=== PATIENT | male | born 1975 | race Caucasian/White ===

== ENCOUNTER 2016-12-03 09:43 | Emergency (ER) | payer SELFPAY ==
[~2016-12-03] VITALS: Ht 177.8 cm; Wt 85.6 kg
[2016-12-03 09:54] VITALS: TEMP 36.8; Ht 177.8 cm; Wt 85.6 kg
[2016-12-03] MEDS ORDERED: DOXY-300 PO (10:40)
--- NOTE | 2016-12-03 10:41 | EMERGENCY ROOM VISIT NOTE ---
History First contact with patient: 10:30 Chief Complaint: BITE Stated Complaint: TICK BITE History of Present Illness The patient is a 41 year old male who presents to the Emergency Room via private vehicle with complaints of "tick bite". The patient states that he was in the shower earlier in the week and noticed a tick bite on his left nipple region. This was removed. He states that he then developed a red erythematous rash around his left nipple. It is been itchy and irritated he states. He denies any pain. He denies any associated fevers, chills, nausea or vomiting. He does have a history significant for Lyme disease in the past which she has been treated with doxycycline. Review of Systems A complete 6-point Review of Systems was discussed with the patient, with pertinent positives and negatives listed in the History of Present Illness. All remaining Review of Systems questions can be considered negative unless otherwise specified. Past Medical/Surgical History Lyme disease Family History Unremarkable Social History Social History: Patient lives locally with a self and his daughter. Current/Historical Medications Scheduled Doxycycline (Monohydrate) (Doxycycline), 100 MG PO BID Miscellaneous Medications None (Patient States No Home Meds) Allergies Coded Allergies: Sulfamethoxazole w/Trimethoprim (Unverified Allergy, hives, 11/17/09) Physical Exam Vital Signs Date Time Temp Pulse Resp B/P (MAP) Pulse Ox O2 Delivery O2 Flow Rate FiO2 12/03/16 10:49 72 18 148/94 97 12/03/16 09:54 36.8 76 20 141/92 97 Room Air Physical Exam VITAL SIGNS - Vital signs and nursing notes were reviewed. Patient is afebrile , hypertensive at 142/91, non-tachycardic and is saturating well on room air 97% . GENERAL -41-year-old male appearing his without stated age who is in no acute distress. Communicates well with provider and answers questions appropriately. SKIN - A circular erythematous rash around the left nipple region. This is not fluctuant. Medical Decision & Procedures Medical Decision Patient was seen and evaluated as above. After obtaining a thorough history and physical examination it was evident the patient was likely experiencing the erythema migrans rash. I do not suspect cellulitis. This was discussed the patient, and decision was made to treat him with doxycycline 21 days. He is to follow-up with his family doctor which he notes he does not have therefore he was instructed to call back here to our hospice case manager if he would like help establishing a family doctor. I offered to help establish a family doctor during his stay and he declined. He does not have any other symptoms at this time. He was educated upon worrisome symptoms which to return, had questions about discharge, and was discharged home in good condition. In evaluation treatment this patient following differential diagnoses were entertained: Erythema migrans, Lyme disease, cellulitis, among others. Impression Primary Impression: Tick bite Additional Impression: Erythema migrans (Lyme disease) Departure Information Dispostion Home / Self-Care Condition GOOD Prescriptions Doxycycline (Monohydrate) (Doxycycline) 100 Mg Cap 100 MG PO BID for 21 Days, #42 TABS Prov: Getachew Cerrato PA-C 12/03/16 Referrals No Doctor, Assigned (PCP) Patient Instructions My [facility] Additional Instructions You were seen in the emergency Department for the rash/redness after a tick bite. At this time we are concerned this could be from Lyme disease. You have been prescribed Doxycycline to be taken as prescribed. This is an antibiotic. All antibiotics have the potential to cause diarrhea. Stop this medication and contact a medical provider if you were to develop any significant adverse side effects including: wheezing, shortness of breath, passing out, vomiting, or a diffuse rash. Always take antibiotics as directed and COMPLETE the ENTIRE course regardless of the improvement of your symptoms. Protect yourself with sunscreen while on this antibiotic as it increases your skin's sensitivity to the light and cause bad sunburns. In addition, you should be sure to take this pill after eating. Make sure the pill is completely swallowed as this medication can cause irritation to the lining of the esophagus. Do NOT drink milk or eat anything with large amounts of Calcium in them 1 hour prior to taking this medication as this will decrease the effectiveness of the medication. This is a 21 day course. If you develop a fever, chills, joint pain, headache or any new/concerning symptoms please return immediately. If the redness worsens please return. Your blood pressure was found to be elevated today, it is recommended that you follow-up with the family doctor. If he would like assistance in identifying a family doctor please call [phone] and ask for a machine adjuster leader case trim. Thank you for your time. Problem Qualifiers
[2016-12-03 10:49] VITALS: BP 148/94; PULSE 72; O2SAT 97
== END 2016-12-03 10:50 | disposition home or self-care (01) ==
LOC: C.EDB 09:47 → C.EDA 10:50
DX: A69.20 Lyme disease, unspecified (principal); S20.372A Other superficial bite of left front wall of thorax, initial encounter; W57.XXXA Bitten or stung by nonvenomous insect and other nonvenomous arthropods, initial encounter